=== PATIENT | male | born 1975 | race Caucasian/White ===

== ENCOUNTER 2017-06-30 16:18 | Emergency (ER) | payer BC, OTHER ==
[~2017-06-30] VITALS: Ht 182.9 cm; Wt 107.0 kg
[2017-06-30 16:20] VITALS: TEMP 36.5; Ht 182.9 cm; Wt 107.0 kg
[2017-06-30] MEDS ORDERED: SODIUM CHLORIDE 0.9% 1000ML 1,000 ML IV STA ×3 (16:43→18:48)
[2017-06-30] MEDS ORDERED: DiphenhydrAMINE HCL 50 MG/ML VIAL IV STA (16:43)
[2017-06-30] MEDS ORDERED: METOCLOPRAMIDE HCL INJ 5 MG/ML 2 ML VIAL IV STA (16:43)
[2017-06-30 17:15] LABS: BASO % 0.3 %; BASO ABS # 0.02 K/uL (0-0.2); COMPLETE YES; EOS % 3.5 %; HEMATOCRIT 46.3 % (42-52); IG% 0.4 %; LYMPH % 26.8 %; LYMPH ABS # 1.91 K/uL (1.2-3.4); MEAN CELL VOLUME 89.6 fL (80-100); MEAN CORPUSCULAR HEMOGLOBIN 32.1 pg (25-34); MEAN CORPUSCULAR HGB CONC 35.9 g/dl (32-36); MEAN PLATELET VOLUME 9.8 fL (7.4-10.4); MONO % 9.8 %; NEUT % 59.2 %; PLATELET COUNT 273 K/uL (130-400); RED BLOOD COUNT 5.17 M/uL (4.7-6.1); WHITE BLOOD COUNT 7.13 K/uL (4.8-10.8)
--- NOTE | 2017-06-30 17:50 | DIAGNOSTIC IMAGING REPORT ---
CT OF THE HEAD WITHOUT CONTRAST CLINICAL HISTORY: Headache. Vertigo. COMPARISON STUDY: No previous studies for comparison. CT DOSE: 601.98 mGy.cm TECHNIQUE: Helical axial images of the head were obtained without IV contrast. Automated exposure control was utilized for the study. A dose lowering technique was utilized adhering to the principles of ALARA. FINDINGS: No acute intracranial hemorrhage, midline shift or mass effect is present. Ventricular system is normal. Basilar cisterns are patent. There are no extra axial collections. Manrique-white differentiation is maintained. There are no findings to suggest acute dural sinus thrombosis or acute territorial infarct. Visualized portions of the sinuses and the mastoid air cells are clear. There are no significant calvarial abnormalities. IMPRESSION: No acute intracranial findings. Electronically signed by: Quoc Carter M.D. 06/30/2017 5:48 PM Dictated Date/Time: 06/30/2017 5:41 PM
[2017-06-30 18:05] LABS: BLOOD UREA NITROGEN 25 mg/dl (7-18); BUN/CREATININE RATIO 15.5 (10-20); CALCIUM 8.6 mg/dl (8.5-10.1); CARBON DIOXIDE 25 mmol/L (21-32); CHLORIDE 104 mmol/L (98-107); GLUCOSE 99 mg/dl (70-99); SODIUM 137 mmol/L (136-145)
[2017-06-30] MEDS ORDERED: DEXAMETHASONE SOD INJ 10 MG/ML VIAL IV ONE (18:15)
[2017-06-30 19:39] LABS: LYME DISEASE AB IGG NEG (NEG); LYME DISEASE AB IGM NEG (NEG)
[2017-06-30 19:52] LABS: ALKALINE PHOSPHATASE 71 U/L (45-117); ALT/SGPT 44 U/L (12-78)
[2017-06-30] MEDS ORDERED: GADAVIST IV PRN (20:15)
--- NOTE | 2017-06-30 20:21 | DIAGNOSTIC IMAGING REPORT ---
MR ANGIOGRAM OF THE BRAIN CLINICAL HISTORY: Headache. COMPARISON STUDY: CT and MRI of the brain performed concurrently and 06/30/2017. TECHNIQUE: 3-D [id number] MR angiography of the intracranial circulation is performed. 3-D tumble views are created and assessed. IV contrast was not administered for this examination. FINDINGS: The internal carotid arteries are widely patent bilaterally, as are the anterior and middle cerebral arteries. The vertebrobasilar system and posterior cerebral arteries are widely patent. The vertebral arteries are codominant. There is no aneurysm, high-grade stenosis, or focal vessel cutoff seen throughout the intracranial circulation. The brain parenchyma is normal as visualized. IMPRESSION: Unremarkable MR angiogram of the brain. Electronically signed by: Sanket Aguayo M.D. 06/30/2017 8:20 PM Dictated Date/Time: 06/30/2017 8:18 PM
--- NOTE | 2017-06-30 20:21 | EMERGENCY ROOM VISIT NOTE ---
History Report prepared by Tess: Horace Escalera Under the Supervision of: Dr. Tan Clark M.D. First contact with patient: 16:34 Chief Complaint: HEADACHE Stated Complaint: HEADACHE History of Present Illness The patient is a 41 year old male who presents to the Emergency Room with complaints of intermittent headaches beginning two days ago. The patient localizes the pain to his temples, behind his eyes and in his sinuses. He has a history of migraines and states that his current headache feels similar to his migraines. He states that he has not had problems with migraines in many years. His headaches are improved with Advil. The patient states that he has been having difficulty sleeping. He also complains of nausea, photophobia and dizziness. He denies any visual changes, fevers, chills, tick bites or rashes, or vomiting. The patient's dizziness is worsened with turning his head. He states that his headache began really suddenly, and the most painful headache that he has ever had. He states that the severe pain lasted for a few hours, but improved with Aleve. The patient drinks alcohol, and estimates that he usually has about two beers per night. He has never had withdrawal symptoms when he stops drinking. He has not had any drinks since his headaches began. Source of History: patient Onset: Two days ago Position: head Timing: intermittent Modifying Factors (Relieving): other (Aleve and Advil) Associated Symptoms: + nausea, No fevers, No chills, No vomiting, No rash Note: Additional symptoms: dizziness and photophobia. He denies any visual changes. Review of Systems See HPI for pertinent positives and negatives. A total of ten systems were reviewed and were otherwise negative. Past Medical & Surgical Surgical Problems: (1) No significant past surgical history Family History No significant family history Social History Smoking Status: Never Smoker Alcohol Use: occasionally Marital Status: Housing Status: lives with family Occupation Status: employed Current/Historical Medications No Active Prescriptions or Reported Meds Allergies Coded Allergies: No Known Allergies (Unverified , 06/30/17) Physical Exam Vital Signs Date Time Temp Pulse Resp B/P (MAP) Pulse Ox O2 Delivery O2 Flow Rate FiO2 06/30/17 21:20 72 16 134/76 98 06/30/17 20:00 62 16 110/62 95 Room Air 06/30/17 18:05 66 16 105/56 95 Room Air 06/30/17 16:20 36.5 85 20 151/90 97 Room Air Physical Exam GENERAL: Awake, alert, uncomfortable, but in no acute distress. HENT: Normocephalic, atraumatic. Oropharynx unremarkable. Dry mucous membranes. TMs are clear bilaterally. EYES: Normal conjunctiva. Sclera non-icteric. Bilateral nystagmus with EOMs. NECK: Supple. No nuchal rigidity. FROM. No JVD. RESPIRATORY: Clear to auscultation. CARDIAC: Regular rate, normal rhythm. Extremities warm and well perfused. Pulses equal. ABDOMEN: Soft, non-distended. No tenderness to palpation. No rebound or guarding. No masses. RECTAL: Deferred. MUSCULOSKELETAL: Chest examination reveals no tenderness. The back is symmetrical on inspection without obvious abnormality. There is no CVA tenderness to palpation. No joint edema. LOWER EXTREMITIES: Calves are equal size bilaterally and non-tender. No edema. No discoloration. NEURO: Normal sensorium. No sensory or motor deficits noted. Finger to nose is slow but no pass-pointing. Similarly alternating palms and heel to shins are slow but no ataxia. Cautious, broad-based gait, but no ataxia. SKIN: No rash or jaundice noted. Medical Decision & Procedures ER Provider Diagnostic Interpretation: Radiology results as stated below per my review and radiologist interpretation: CT OF THE HEAD WITHOUT CONTRAST FINDINGS: No acute intracranial hemorrhage, midline shift or mass effect is present. Ventricular system is normal. Basilar cisterns are patent. There are no extra axial collections. Manrique-white differentiation is maintained. There are no findings to suggest acute dural sinus thrombosis or acute territorial infarct. Visualized portions of the sinuses and the mastoid air cells are clear. There are no significant calvarial abnormalities. IMPRESSION: No acute intracranial findings. Electronically signed by: Quoc Carter M.D. MRI OF THE BRAIN COMBO FINDINGS: Brain parenchyma: The brain parenchyma is normal in appearance. There is no hemorrhage or mass effect. There is no restricted diffusion to suggest acute ischemia. No enhancing mass lesion is identified on the postcontrast images. Manrique-white matter differentiation is preserved. No extra-axial fluid collection is seen. The cerebellar tonsils are normal in configuration. Ventricles, sulci, and cisterns: Normal in configuration. Pituitary and sella: Unremarkable. Intracranial vasculature: Normal flow voids are maintained at the skull base. Orbits: The bony orbits are grossly intact. Orbital contents are normal in appearance. Sinuses and mastoids: There is a trace left mastoid effusion. The right mastoid air cells and the paranasal sinuses are clear. Calvarium: Unremarkable. Cervical cord: Partially visualized cervical spinal cord is normal in morphology and signal intensity. IMPRESSION: No acute intracranial abnormality. Electronically signed by: Sanket Aguayo M.D. MR ANGIOGRAM OF THE BRAIN FINDINGS: The internal carotid arteries are widely patent bilaterally, as are the anterior and middle cerebral arteries. The vertebrobasilar system and posterior cerebral arteries are widely patent. The vertebral arteries are codominant. There is no aneurysm, high-grade stenosis, or focal vessel cutoff seen throughout the intracranial circulation. The brain parenchyma is normal as visualized. IMPRESSION: Unremarkable MR angiogram of the brain. Electronically signed by: Sanket Aguayo M.D. Laboratory Results 06/30/17 17:00 Red Blood Count 5.17, Mean Corpuscular Volume 89.6, Mean Corpuscular Hemoglobin 32.1, Mean Corpuscular Hemoglobin Concent 35.9, Mean Platelet Volume 9.8, Neutrophils (%) (Auto) 59.2, Lymphocytes (%) (Auto) 26.8, Monocytes (%) (Auto) 9.8, Eosinophils (%) (Auto) 3.5, Basophils (%) (Auto) 0.3, Neutrophils # (Auto) 4.22, Lymphocytes # (Auto) 1.91, Monocytes # (Auto) 0.70, Eosinophils # (Auto) 0.25, Basophils # (Auto) 0.02 06/30/17 17:00 06/30/17 20:26 Test 06/30/17 17:00 06/30/17 20:26 White Blood Count 7.13 K/uL (4.8-10.8) Red Blood Count 5.17 M/uL (4.7-6.1) Hemoglobin 16.6 g/dL (14.0-18.0) Hematocrit 46.3 % (42-52) Mean Corpuscular Volume 89.6 fL (80-100) Mean Corpuscular Hemoglobin 32.1 pg (25-34) Mean Corpuscular Hemoglobin Concent 35.9 g/dl (32-36) Platelet Count 273 K/uL (130-400) Mean Platelet Volume 9.8 fL (7.4-10.4) Neutrophils (%) (Auto) 59.2 % Lymphocytes (%) (Auto) 26.8 % Monocytes (%) (Auto) 9.8 % Eosinophils (%) (Auto) 3.5 % Basophils (%) (Auto) 0.3 % Neutrophils # (Auto) 4.22 K/uL (1.4-6.5) Lymphocytes # (Auto) 1.91 K/uL (1.2-3.4) Monocytes # (Auto) 0.70 K/uL (0.11-0.59) Eosinophils # (Auto) 0.25 K/uL (0-0.5) Basophils # (Auto) 0.02 K/uL (0-0.2) RDW Standard Deviation 40.9 fL (36.4-46.3) RDW Coefficient of Variation 12.5 % (11.5-14.5) Immature Granulocyte % (Auto) 0.4 % Immature Granulocyte # (Auto) 0.03 K/uL (0.00-0.02) Anion Gap 8.0 mmol/L (3-11) Est Creatinine Clear Calc Drug Dose 76.8 ml/min Estimated GFR () 61.1 Estimated GFR (Non- 52.7 BUN/Creatinine Ratio 15.5 (10-20) Calcium Level 8.6 mg/dl (8.5-10.1) Total Bilirubin 0.4 mg/dl (0.2-1) Alanine Aminotransferase (ALT/SGPT) 44 U/L (12-78) Alkaline Phosphatase 71 U/L (45-117) Total Protein 7.8 gm/dl (6.4-8.2) Albumin 4.0 gm/dl (3.4-5.0) Lipase 137 U/L (73-393) Lyme Disease IgG Antibody NEG (NEG) Lyme Disease IgM Antibody NEG (NEG) Direct Bilirubin mg/dl (0-0.2) Aspartate Amino Transf (AST/SGOT) 21 U/L (15-37) Chemistry Specimen Hemolysis Laboratory results reviewed by me Medications Administered Medications (Trade) Dose Ordered Sig/Abelardo Route Start Time Stop Time Status Last Admin Dose Admin Sodium Chloride 1,000 ml @ 999 mls/hr Q1H1M STAT IV 06/30/17 16:43 06/30/17 17:43 DC 06/30/17 17:05 999 MLS/HR Metoclopramide HCl (Reglan Inj) 10 mg NOW STAT IV 06/30/17 16:43 06/30/17 16:56 DC 06/30/17 17:05 10 MG Diphenhydramine HCl (Benadryl Inj) 25 mg NOW STAT IV 06/30/17 16:43 06/30/17 16:56 DC 06/30/17 17:04 25 MG Dexamethasone Sodium Phosphate (Decadron Inj) 10 mg NOW ONCE IV 06/30/17 18:15 06/30/17 18:16 DC 06/30/17 18:18 10 MG Sodium Chloride 1,000 ml @ 999 mls/hr Q1H1M STAT IV 06/30/17 18:08 06/30/17 19:08 DC 06/30/17 18:08 999 MLS/HR Sodium Chloride 1,000 ml @ 125 mls/hr Q8H STAT IV 06/30/17 18:48 06/30/17 22:51 DC 06/30/17 18:48 125 MLS/HR ED Course 1640: The patient was evaluated in room A9B. A complete history and physical exam was performed. 1643: Ordered Benadryl Inj 25 mg IV, Reglan Inj 10 mg IV, Sodium Chloride 1000 ml @ 999 mls/hr IV. 1808: Ordered Sodium Chloride 1000 ml @ 999 mls/hr IV. 1815: Ordered Decadron Inj 10 mg IV. 1848: Ordered Sodium Chloride 1000 ml @ 125 mls/hr IV. 2015: Ordered Gadavist 10.5 mmol IV. 2040: I reevaluated the patient. Discussed results and discharge instructions: he verbalized understanding and agreement. The patient is ready for discharge. Medical Decision I reviewed the patient's past medical history, medications, and the nursing notes as described above. The patient's presentation and history were concerning for migraine, tension headache, subarachnoid hemorrhage, stroke, peripheral vertigo, meningitis, electrolyte abnormalities, and dehydration. Patient is a 41-year-old gentleman with a past medical history of remote migraines since resolved presents emergency Department with 4 days of severe headache that he reports was acute onset and was 10 out of 10 the worst headache of his life and has been constant since then associated vertiginous sensation, all of which wax and wane per history of present illness. On arrival the patient appears uncomfortable but in no acute distress. He is afebrile with stable vital signs. Neck is supple with full range of motion. However patient reports worsening vertigo when turning his head and on exam the patient has bilateral nystagmus. No gross neurologic deficits although the patient has a slowed motor when attempting finger to nose and alternating palms , and [id number]. Gait similarly appears stable but slow with broad base. Labs show a WBC within normal limits. Otherwise patient has a creatinine 1.6. CT head without contrast was unremarkable. During the patient's bilateral nystagmus and persistent vertigo will rule out central etiology with MRI, over the ensuing the patient also has a reported severe headache MRA also added to evaluate for aneurysm. Patient given migraine cocktail with minimal effect, IV fluids and dexamethasone given. I patient's symptoms not improved will need to consider LP to definitively rule out subarachnoid hemorrhage. MRI/MRA unremarkable. Patient's sx mostly resolved with 2/10 residual head pressure. I d/w patient option for LP but that i was reassuring that his symptoms had improved. Patient preferred d/c and will f/u with his doctor. Findings reviewed and plan for follow-up d/w patient. Patient agreeable and d/c' d per discharge instructions. Medication Reconcilliation Current Medication List: was personally reviewed by me Blood Pressure Screening Patient's blood pressure: Elevated blood pressure Blood pressure disposition: Elevated BP felt to be situational Impression Primary Impression: Migraine Scribe Attestation The scribe's documentation has been prepared under my direction and personally reviewed by me in its entirety. I confirm that the note above accurately reflects all work, treatment, procedures, and medical decision making performed by me. Departure Information Dispostion Home / Self-Care Prescriptions No Active Prescriptions or Reported Meds Referrals Yesica Acuña M.D. (MEDICAL) (PCP) Patient Instructions ED Dehydration, ED Headache Migraine, My [facility] Additional Instructions Please follow up with your primary care physician in the next 1-3 days for re- evaluation and to repeat your kidney function tests. Your symptoms improved with treatment. Otherwise, your exam, CT scan and MRI of your brain did not show signs of an emergent condition at this time. Make sure to drink plenty of fluids to stay hydrated. Avoid drinking alcohol. Return to the emergency department for worsening symptoms as described in the accompanying instructions. Work Instructions Return To Work: 3 days
--- NOTE | 2017-06-30 20:24 | DIAGNOSTIC IMAGING REPORT ---
MRI OF THE BRAIN COMBO CLINICAL HISTORY: Headache. Vertigo. COMPARISON STUDY: CT of the brain performed the same day 06/30/2017. TECHNIQUE: MRI of the brain was performed utilizing various T1 and T2-weighted sequences in the axial, sagittal, and coronal planes. Contrast-enhanced sequences were acquired following the administration of 10.5 cc of Gadavist. FINDINGS: Brain parenchyma: The brain parenchyma is normal in appearance. There is no hemorrhage or mass effect. There is no restricted diffusion to suggest acute ischemia. No enhancing mass lesion is identified on the postcontrast images. Manrique-white matter differentiation is preserved. No extra-axial fluid collection is seen. The cerebellar tonsils are normal in configuration. Ventricles, sulci, and cisterns: Normal in configuration. Pituitary and sella: Unremarkable. Intracranial vasculature: Normal flow voids are maintained at the skull base. Orbits: The bony orbits are grossly intact. Orbital contents are normal in appearance. Sinuses and mastoids: There is a trace left mastoid effusion. The right mastoid air cells and the paranasal sinuses are clear. Calvarium: Unremarkable. Cervical cord: Partially visualized cervical spinal cord is normal in morphology and signal intensity. IMPRESSION: No acute intracranial abnormality. Electronically signed by: Sanket Aguayo M.D. 06/30/2017 8:22 PM Dictated Date/Time: 06/30/2017 8:20 PM
[2017-06-30 21:04] LABS: AST/SGOT 21 U/L (15-37); POTASSIUM 4.2 mmol/L (3.5-5.1)
[2017-06-30 21:20] VITALS: BP 134/76; PULSE 72; O2SAT 98
== END 2017-06-30 21:40 | disposition home or self-care (01) ==
LOC: C.EDB 16:19 → C.EDA 21:40
DX: G43.909 Migraine, unspecified, not intractable, without status migrainosus (principal)